=== PATIENT | female | born 1960 | race Caucasian/White ===

== ENCOUNTER 2024-03-29 11:14 | Emergency (ER) | payer OTHER, MEDICAID, SELFPAY ==
[2024-03-29 11:29] VITALS: BP 139/69; PULSE 57; TEMP 36.6; O2SAT 98; BMI 29.8
--- NOTE | 2024-03-29 12:24 | ED_ITS ---
HPI HPI - General Adult General Chief complaint: Headache Stated complaint: HEADACHE, NAUSEA, CHILLS Time Seen by Provider: 03/29/24 12:24 Source: patient Mode of arrival: walk-in Limitations: no limitations History of Present Illness HPI narrative: This patient is here by herself for complaint of a headache. She says the headache began several days ago. It was slow and gradual in onset, not abrupt or explosive. She says she is gotten more more pressure each day. She says she has had problem with her sinuses before and that is what it feels like. She has not had any diplopia dysarthria dysphagia or vertigo does not have any pain in her neck. She not fever. Does not have other viral stigmata or anything suggestive of COVID. She has no weakness of her trunk torso or extremities or dysesthesias. She has not had purulent or bloody nasal discharge but she does have some mucus secretions. Does not have any ocular disturbance. She says she has taken antibiotics before and its gotten better. Related Data Allergies Allergy/AdvReac Type Severity Reaction Status Date / Time acetaminophen AdvReac Mild Nausea Verified 03/29/24 11:34 [From Darvocet-N] naproxen AdvReac Mild Nausea Verified 03/29/24 11:34 niacin AdvReac Mild Rash Verified 03/29/24 11:34 oxycodone [From Percocet] AdvReac Mild Nausea Verified 03/29/24 11:34 propoxyphene AdvReac Mild Nausea Verified 03/29/24 11:34 [From Darvocet-N] Opioid HPI Opioid Management Most Recent Opioid Data: No Data to Display [facility] Medical History (Updated 03/29/24 @ 12:28 by Santana Munoz MD) Neuropathy ?G62.9 - Polyneuropathy, unspecified (ICD-10) Arthritis ?M19.90 - Unspecified osteoarthritis, unspecified site (ICD-10) Hypertension ?I10 - Essential (primary) hypertension (ICD-10) Diabetes type 2, controlled ?E11.9 - Type 2 diabetes mellitus without complications (ICD-10) Surgical History (Updated 03/29/24 @ 11:36 by Jany Ingram RN) Stented coronary artery ?Z95.5 - Presence of coronary angioplasty implant and graft (ICD-10) Hx of CABG ?Z95.1 - Presence of aortocoronary bypass graft (ICD-10) Social History Little interest or pleasure in doing things: not at all Feeling down, depressed, or hopeless: not at all Exam Narrative Exam Narrative: Awake alert cognition and are normal. She is an excellent historian. Vitals: Signs are stable and she is afebrile. Her neck is soft and supple there is no meningeal irritation there is no nuchal rigidity there is no photosensitivity or noise sensitivity. Cervical range of motion is unrestricted and she is not stiff. ENT examination shows both TMs to be completely normal. Pharynx is not erythematous nasal area is slightly boggy and congested but no purulent nasal discharge. There is no facial swelling. There is no proptosis. No conjunctivitis. Cranial nerves II through XII are intact. Her lungs were clear no wheeze rales or rhonchi heart sounds are normal. Constitutional Vital Signs, click to edit/add: Last Vital Signs Temp 98 F 03/29/24 11:29 Pulse 57 L 03/29/24 11:29 Resp 18 03/29/24 11:29 BP 139/69 03/29/24 11:29 Pulse Ox 98 03/29/24 11:29 O2 Del Method Room Air 03/29/24 11:29 Course Vital Signs Vital signs: Vital Signs Temperature 98 F 03/29/24 11:29 Pulse Rate 57 L 03/29/24 11:29 Respiratory Rate 18 03/29/24 11:29 Blood Pressure 139/69 03/29/24 11:29 Pulse Oximetry 98 03/29/24 11:29 Oxygen Delivery Method Room Air 03/29/24 11:29 Temperature 98 F 03/29/24 11:29 Pulse Rate 57 L 03/29/24 11:29 Respiratory Rate 18 03/29/24 11:29 Blood Pressure 139/69 03/29/24 11:29 Pulse Oximetry 98 03/29/24 11:29 Oxygen Delivery Method Room Air 03/29/24 11:29 Medical Decision Making [facility] Narrative Medical decision making narrative: This patient presents with slow gradual onset of frontal headache no different than previous sinus infections she has no neurological symptomatology or susp icion of intracranial path this pathology at this time. She is afebrile. No photo or phono sensitivity. I do not believe she needs imaging at this time but after a course of antibiotics she was advised to follow-up with her physician or return if she does not have improvement of her symptoms. She currently is using Flonase as well. Discharge Plan Discharge Chief Complaint: Headache Clinical Impression: Sinus headache Patient Disposition: Home, Self-Care Time of Disposition Decision: 12:28 Print Language: Polish Additional Instructions: Continue Flonase/azithromycin Referrals: Physician,Non-Staff, MD [Primary Care Provider] - 1 week
== END 2024-03-29 12:39 | disposition home or self-care (01) ==
PROVIDERS: Emergency Provider Emergency Medicine Emergency Medical Services
DX: R51.9 Headache, unspecified (principal)
CPT/HCPCS: 99283